=== PATIENT | male | born 1945 | race Caucasian/White ===

== ENCOUNTER → 2018-11-21 09:38 | Outpatient (CLI) | payer MEDICARE, OTHER, SELFPAY ==
[2018-11-21 10:52] LABS: Add Manual Diff / Slide Review NO; Basophils Absolute Auto 100 /uL (0-100); Basophils Percent Auto 1.4 % (0-2); Eosinophils Absolute Auto 300 /uL (0-450); Eosinophils Percent Auto 3.9 % (2-4); Hematocrit 42.9 % (41-53); Hemoglobin 14.6 g/dL (13.5-17.5); Lymphocytes Absolute Auto 1400 /uL (1100-4500); Lymphocytes Percent Auto 21.9 % (25-40); Mean Corpuscular HGB Conc 34.1 % (30-36); Mean Corpuscular Volume 90.8 fL (80-100); Monocytes Absolute Auto 600 /uL (0-900); Neutrophils Absolute Auto 4100 /uL (1500-7000); Neutrophils Percent Auto 63.8 % (50-75); Platelet Count 249 X10^3/uL (150-400); Red Blood Cell Count 4.73 X10^6/uL (4.5-5.9); Red Cell Distribution Width 13.8 % (11.6-14.8); White Blood Cell Count 6.5 X10^3/uL (4.5-11.0)
[2018-11-21 11:34] LABS: Alanine Aminotransferase 39 IU/L (21-72); Albumin 4.5 g/dL (3.5-5.0); Albumin Globulin Ratio 1.5 (1.0-2.8); Alkaline Phosphatase 63 U/L (38-126); Aspartate Aminotransferase 33 IU/L (17-59); Bilirubin Total 0.8 mg/dL (0.2-1.3); Blood Urea Nitrogen 18 mg/dL (9-20); Calcium 9.7 mg/dL (8.4-10.2); Carbon Dioxide 29 mmol/L (22-32); Chloride 101 mmol/L (98-107); Cholesterol 148 mg/dL (140-199); Estimated Glomerular Filt Rate > 60.0 mL/min (>60); Glucose 102 mg/dL (80-110); HDL Cholesterol 43 mg/dL (40-60); HEMOLYSIS < 15 (0-50); LDL Cholesterol Calculated 86 mg/dL (<100); Potassium 4.3 mmol/L (3.4-5.1); Sodium 140 mmol/L (137-145); Total Protein 7.5 g/dL (6.3-8.2); Triglycerides 93 mg/dL (35-150)
[2018-11-21 12:01] LABS: TSH w/ Reflex to FT4 3.01 uIU/mL (0.47-4.68)
== END ==
PROVIDERS: PCP Family Medicine; Visit Provider Family Medicine
DX: E78.2 Mixed hyperlipidemia (principal); I10 Essential (primary) hypertension; Z00.00 Encounter for general adult medical examination without abnormal findings
CPT/HCPCS: 36415; 80053; 80061; 84443; 85025

== ENCOUNTER → 2020-06-13 07:14 | Outpatient (CLI) | payer MEDICARE, OTHER, SELFPAY ==
[2020-06-13 09:06] LABS: Alanine Aminotransferase 54 IU/L (<50); Albumin 4.1 g/dL (3.5-5.0); Albumin Globulin Ratio 1.4 (1.0-2.8); Alkaline Phosphatase 63 U/L (38-126); Aspartate Aminotransferase 44 IU/L (17-59); BUN Creatinine Ratio 20.9 (6-22); Bilirubin Total 0.8 mg/dL (0.2-1.3); Blood Urea Nitrogen 18 mg/dL (9-20); Calcium 9.4 mg/dL (8.4-10.2); Carbon Dioxide 32 mmol/L (22-32); Chloride 102 mmol/L (98-107); Cholesterol 140 mg/dL (140-199); Estimated Glomerular Filt Rate > 60.0 mL/min (>60); Glucose 101 mg/dL (80-110); HDL Cholesterol 48 mg/dL (40-60); HEMOLYSIS < 15 (0-50); LDL Cholesterol Calculated 77 mg/dL (<100); Potassium 4.5 mmol/L (3.4-5.1); Sodium 139 mmol/L (137-145); Total Protein 7.1 g/dL (6.3-8.2); Triglycerides 76 mg/dL (35-150)
== END ==
PROVIDERS: PCP Family Medicine
DX: E78.2 Mixed hyperlipidemia (principal)
CPT/HCPCS: 36415; 80053; 80061

== ENCOUNTER → 2021-06-12 06:57 | Outpatient (CLI) | payer MEDICARE, OTHER, SELFPAY ==
[2021-06-12 08:52] LABS: Alanine Aminotransferase 45 IU/L (<50); Albumin 4.5 g/dL (3.5-5.0); Albumin Globulin Ratio 1.5 (1.0-2.8); Alkaline Phosphatase 69 U/L (38-126); Aspartate Aminotransferase 40 IU/L (17-59); Bilirubin Total 0.6 mg/dL (0.2-1.3); Blood Urea Nitrogen 19 mg/dL (9-20); Calcium 10.1 mg/dL (8.4-10.2); Carbon Dioxide 29 mmol/L (22-32); Chloride 100 mmol/L (98-107); Cholesterol 167 mg/dL (140-199); Estimated Glomerular Filt Rate > 60.0 mL/min (>60); Globulin 3.1 g/dL (1.7-4.1); Glucose 111 mg/dL (80-110); HDL Cholesterol 52 mg/dL (40-60); HEMOLYSIS < 15 (0-50); LDL Cholesterol Calculated 86 mg/dL (<100); Potassium 4.6 mmol/L (3.4-5.1); Sodium 139 mmol/L (137-145); Total Protein 7.6 g/dL (6.3-8.2); Triglycerides 144 mg/dL (35-150)
== END ==
PROVIDERS: PCP Family Medicine; Referring Provider Internal Medicine Cardiovascular Disease; Visit Provider Internal Medicine Cardiovascular Disease
DX: E78.2 Mixed hyperlipidemia (principal)
CPT/HCPCS: 36415; 80053; 80061

== ENCOUNTER 2022-04-21 04:29 | Emergency (ER) | payer MEDICARE, OTHER, SELFPAY ==
[2022-04-21 04:34] VITALS: BP 201/84; PULSE 66; RESP 14; TEMP 36.6; O2SAT 97; BMI 24.4
--- NOTE | 2022-04-21 05:04 | DI.CT.S_ITS ---
PROCEDURE: CT HEAD/BRAIN WO CON INDICATIONS: fall TECHNIQUE: Noncontrast 4.5 mm thick angled axial sections acquired from the foramen magnum to the vertex, with coronal and sagittal reformats. For radiation dose reduction, the following was used: automated exposure control, adjustment of mA and/or kV according to patient size. COMPARISON: [facility], CT, HEAD WITHOUT CONTRAST, 02/13/2010, 13:16. FINDINGS: Image quality: Excellent. CSF spaces: Basal cisterns are patent. No extra-axial fluid collections. The ventricles are symmetric in size and shape. Brain: No intracranial bleeds or masses. There is age-appropriate cerebral volume loss, with resultant ventricular and sulcal prominence. There are periventricular and deep white matter chronic small vessel ischemic changes. There is intracranial internal carotid artery atherosclerosis. Skull and face: Calvarium and visualized facial bones appear intact, without suspicious lesions. Sinuses: Visualized sinuses and mastoids are clear. IMPRESSION: Negative head CT for patient age. No evidence of acute intracranial process. Comment: Final report is concordant with preliminary interpretation provided by [facility]. Dictated by: Jeff Cruz M.D. on 04/21/2022 at 8:13 Approved by: Jeff Curz M.D. on 04/21/2022 at 8:14
--- NOTE | 2022-04-21 05:04 | DI.CT.S_ITS ---
PROCEDURE: CT CERVICAL SPINE WO CON INDICATIONS: fall, neck pain TECHNIQUE: Noncontrast 3 mm thick sections acquired from the skull base to the T4 level. Sagittal and coronal reformats were then constructed. For radiation dose reduction, the following was used: automated exposure control, adjustment of mA and/or kV according to patient size. COMPARISON: None. FINDINGS: Image quality: Excellent. Bones: No fractures or dislocations. Visualized superior ribs are intact. Relatively mild cervical spondylitic change. Soft tissues: Prevertebral soft tissues are normal in thickness. No paravertebral hematomas. No apical pneumothoraces. IMPRESSION: No evidence acute cervical fracture or dislocation. Comment: Final report is concordant with preliminary interpretation provided by [facility]. Dictated by: Jeff Cruz M.D. on 04/21/2022 at 8:11 Approved by: Jeff Cruz M.D. on 04/21/2022 at 8:13
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
== END 2022-04-21 06:44 | disposition home or self-care (01) ==
PROVIDERS: Emergency Provider Emergency Medicine; PCP Family Medicine
DX: S06.0X0A Concussion without loss of consciousness, initial encounter (principal); S16.1XXA Strain of muscle, fascia and tendon at neck level, initial encounter; F43.10 Post-traumatic stress disorder, unspecified; F51.4 Sleep terrors [night terrors]; W06.XXXA Fall from bed, initial encounter
CPT/HCPCS: 70450; 72125; 99283

== ENCOUNTER → 2022-10-02 08:33 | Outpatient (CLI) | payer MEDICARE, OTHER, SELFPAY ==
[2022-10-02 09:30] LABS: Hemoglobin A1C% w Est Avg Glu 6.1 % (4.0-6.0)
[2022-10-02 09:56] LABS: Add Manual Diff / Slide Review NO; Basophils Absolute Auto 100 /uL (0-100); Basophils Percent Auto 1.1 % (0-2); Eosinophils Absolute Auto 200 /uL (0-450); Eosinophils Percent Auto 3.1 % (2-4); Hematocrit 42.8 % (41-53); Hemoglobin 14.7 g/dL (13.5-17.5); Lymphocytes Absolute Auto 1900 /uL (1100-4500); Lymphocytes Percent Auto 23.9 % (25-40); Mean Corpuscular HGB Conc 34.3 % (30-36); Mean Corpuscular Volume 90.4 fL (80-100); Monocytes Absolute Auto 800 /uL (0-900); Monocytes Percent Auto 9.5 % (3-14); Neutrophils Absolute Auto 5000 /uL (1500-7000); Neutrophils Percent Auto 62.4 % (50-75); Platelet Count 232 X10^3/uL (150-400); Red Blood Cell Count 4.74 X10^6/uL (4.5-5.9); Red Cell Distribution Width 13.4 % (11.6-14.8)
[2022-10-02 10:04] LABS: Alanine Aminotransferase 40 IU/L (<50); Albumin 4.2 g/dL (3.5-5.0); Albumin Globulin Ratio 1.4 (1.0-2.8); Alkaline Phosphatase 68 U/L (38-126); Aspartate Aminotransferase 34 IU/L (17-59); Blood Urea Nitrogen 20 mg/dL (9-20); Calcium 9.5 mg/dL (8.4-10.2); Carbon Dioxide 31 mmol/L (22-32); Chloride 100 mmol/L (98-107); Estimated Glomerular Filt Rate > 60 mL/min (>60); Glucose 111 mg/dL (80-110); HEMOLYSIS < 15 (0-50); Potassium 4.8 mmol/L (3.4-5.1); Sodium 139 mmol/L (137-145); Total Protein 7.2 g/dL (6.3-8.2)
[2022-10-02 10:30] LABS: Prostate Specific Antigen 15.6 ng/mL (0.10-4.00)
== END ==
PROVIDERS: PCP Family Medicine; Referring Provider Family Medicine; Visit Provider Family Medicine
DX: E78.5 Hyperlipidemia, unspecified (principal); R73.9 Hyperglycemia, unspecified; I10 Essential (primary) hypertension; Z12.5 Encounter for screening for malignant neoplasm of prostate
CPT/HCPCS: 36415; 80053; 83036; 84153; 85025; G0103

== ENCOUNTER → 2022-12-13 16:24 | Outpatient (CLI) | payer MEDICARE, OTHER, SELFPAY ==
[2022-12-13 18:11] LABS: Prostate Specific Antigen 18.2 ng/mL (0.10-4.00)
== END ==
PROVIDERS: PCP Family Medicine; Referring Provider Family Medicine; Visit Provider Family Medicine
DX: R97.20 Elevated prostate specific antigen [PSA] (principal)
CPT/HCPCS: 36415; 84153

== ENCOUNTER → 2023-01-12 08:15 | Outpatient (CLI) | payer MEDICARE, OTHER, SELFPAY ==
[2023-01-12 11:19] LABS: Prostate Specific Antigen 15.4 ng/mL (0.10-4.00)
== END ==
PROVIDERS: PCP Family Medicine; Referring Provider Urology; Visit Provider Urology
DX: R97.20 Elevated prostate specific antigen [PSA] (principal)
CPT/HCPCS: 36415; 84153

== ENCOUNTER 2025-03-20 11:54 | Emergency (ER) | payer MEDICARE, OTHER, SELFPAY ==
[2025-03-20] VITALS (15 sets, daily range): BP systolic 126–180; BP diastolic 63–81; PULSE 54–72; RESP 11–26; TEMP 36.4; O2SAT 96–100; BMI 25.0
--- NOTE | 2025-03-20 12:03 | DI.RAD.S_ITS ---
PROCEDURE: XR CHEST 1V INDICATIONS: Chest Pain TECHNIQUE: One view of the chest was acquired. COMPARISON: None. FINDINGS: Surgical changes and devices: None. Lungs and pleura: An incomplete inspiratory result is noted, causing a crowded appearance to the lung markings. No focal infiltrates are seen. No pneumothorax or significant pleural effusions are seen. Mediastinum: Mediastinal contours appear normal. Heart size is normal. Bones and chest wall: No suspicious bony lesions. Age-appropriate bony degenerative changes are seen. Overlying soft tissues appear unremarkable. IMPRESSION: Low lung volumes, without an acute abnormality seen by plain film. Dictated by: Ochoa Kapadia M.D. on 03/20/2025 at 11:22 Approved by: Ochoa Kapadia M.D. on 03/20/2025 at 11:22
--- NOTE | 2025-03-20 12:05 | EKG_ITS ---
[address] [address] Test Date: 2025-03-20 Pat Name: Juan Francisco Serra Department: Room: Gender: Male [employer] W[employer] Inspector: THAI : 1945 Requested By: Order Number: [id number] Reading MD: Ricardo Gurrola Measurements Intervals [place] Rate: 66 P: 37 MT: 150 QRS: 46 QRSD: 80 T: 61 QT: 420 QTc: 440 Interpretive Statements Normal sinus rhythm Electronically Signed On 03-20-2025 15:10:36 PDT by Ricardo Gurrola
--- NOTE | 2025-03-20 12:10 | ED.DIZZY ---
HPI - Dizziness General Chief Complaint: Dizziness Stated Complaint: Vertigo, SOB , leg pain Time Seen by Provider: 03/20/25 12:10 Source: patient Mode of arrival: Ambulatory History of Present Illness HPI Narrative: 80-year-old male complaining of dizziness generalized weakness and exertional dyspnea. These symptoms have been ongoing for quite some time, says that they were worse yesterday when he was out in the sun. Actually fell down yesterday at 1 point although did not syncopized. He is not having chest pain or shortness of breath. He has not have focal numbness or weakness. Dizziness today is better than it was yesterday. Has a history of prostate cancer and hypertension. There is a family practice note that I reviewed from March of 2024 where he was seen for chronic dizziness and shortness of breath. Related Data Home Medications ?Medication ?Instructions ?Recorded ?Confirmed amlodipine 5 mg tablet 5 mg PO DAILY 09/30/22 04/24/24 atorvastatin 40 mg tablet 40 mg PO DAILY 09/30/22 04/24/24 metoprolol succinate 25 mg 25 mg PO DAILY 09/30/22 04/24/24 tablet,extended release 24 hr Previous Rx's ?Medication ?Instructions ?Recorded gentamicin 0.3 % eye drops 2 drp EYE-LEFT TID #5 mL 01/24/25 Allergies Allergy/AdvReac Type Severity Reaction Status Date / Time GRASS Allergy Intermediate ITCHY Uncoded 03/20/25 12:04 WATERY EYES AND SNEEZING INGREDIENT: NKDA - NO KNOWN Allergy Unknown Uncoded 03/20/25 12:04 DRUG ALLERGIES Patient History Medical History Conjunctivitis Prostate cancer Elevated PSA Hyperglycemia Hyperlipidemia Hypertension Adult night terror Social History Smoking Status: Unknown if ever smoked Smoking Status: Unknown if ever smoked alcohol intake frequency: 0-2 drinks per day Exam Initial Vital Signs Initial Vital Signs: Vital Signs Temperature 97.6 F 03/20/25 11:55 Pulse Rate 72 03/20/25 11:55 Respiratory Rate 17 03/20/25 11:55 Blood Pressure 180/78 H 03/20/25 11:55 Pulse Oximetry 96 03/20/25 11:55 Oxygen Delivery Method Room Air 03/20/25 11:55 vital signs are reviewed Const General: cooperative and No acute distress HENMT Head: normocephalic and atraumatic Face and sinus: face symmetric Mouth: moist mucous membranes HENMT Other: Cerumen impaction left ear Eyes Pupils: PERRL EOM: EOM intact bilaterally Other: No nystagmus Neck Neck: normal visual inspection, supple and No JVD Chest Chest: normal inspection of the chest Resp Effort & Inspection: normal respiratory effort and able to speak in complete sentences Auscultation: clear to auscultation bilaterally Cardio Rate: regular rate Rhythm: regular rhythm Heart Sounds: no murmurs Other: Normal heart rate GI Inspection: normal to inspection Palpation: soft Auscultation: normal bowel sounds Back/Spine/Pelvis Back: normal to inspection Skin General: no rashes or lesions noted and warm Neuro General: patient alert, patient oriented x3 and moves all extremities Speech: speech normal Extrem General: full ROM Psych Appearance: grossly normal Course Orders Ordered: ED Orders 03/20/25 12:03 XR chest 1V Stat EKG-12 Lead Stat 03/20/25 12:20 Complete Blood Count AUTO DIFF Stat Comprehensive Metabolic Panel Stat Lipase Stat Magnesium Stat NT-proBNP (BNP-Adult 18+) Stat PTT Partial Thromboplastin Lew Stat Prothrombin Time INR Stat Troponin & CK Cardiac Panel Stat 03/20/25 13:27 CT head/brain wo con Stat Carbamide Peroxide (Carbamide Peroxide Otic 15 Ml) 4 drops EAR-LEFT BID GARRISON Last Admin: 03/20/25 15:43 Dose: 4 drops Documented By: ES Vital Signs Vital signs: Vital Signs - 8 hr 03/20/25 11:55 03/20/25 12:00 03/20/25 12:00 Temperature 97.6 F Pulse Rate 72 71 Respiratory Rate 17 Blood Pressure 180/78 H 180/78 H Pulse Oximetry 96 96 Oxygen Delivery Method Room Air 03/20/25 12:30 03/20/25 12:31 03/20/25 12:31 Temperature Pulse Rate 61 62 Respiratory Rate 19 18 Blood Pressure 136/63 Pulse Oximetry 99 97 Oxygen Delivery Method 03/20/25 13:00 03/20/25 13:00 03/20/25 13:30 Temperature Pulse Rate 65 65 Respiratory Rate 21 21 Blood Pressure 126/63 Pulse Oximetry 99 98 Oxygen Delivery Method 03/20/25 13:37 03/20/25 13:37 03/20/25 14:00 Temperature Pulse Rate 68 57 L Respiratory Rate 20 11 L Blood Pressure 178/80 H Pulse Oximetry 99 98 Oxygen Delivery Method 03/20/25 14:01 03/20/25 14:01 03/20/25 14:30 Temperature Pulse Rate 56 L 55 L Respiratory Rate 15 16 Blood Pressure 151/69 H Pulse Oximetry 97 98 Oxygen Delivery Method 03/20/25 14:30 03/20/25 15:00 03/20/25 15:00 Temperature Pulse Rate 64 Respiratory Rate 26 H Blood Pressure 151/70 H 149/65 H Pulse Oximetry 100 Oxygen Delivery Method 03/20/25 15:30 03/20/25 15:30 03/20/25 16:00 Temperature Pulse Rate 54 L 57 L Respiratory Rate 11 L 20 Blood Pressure 140/63 Pulse Oximetry 98 99 Oxygen Delivery Method 03/20/25 16:01 03/20/25 16:01 Temperature Pulse Rate 57 L Respiratory Rate 17 Blood Pressure 161/70 H Pulse Oximetry 99 Oxygen Delivery Method MDM - Dizziness Lab Data Lab results narrative: Labs are reassuring, BNP is normal, CMP is unremarkable CBC with diff unremarkable, normal troponin 03/20/25 12:20 03/20/25 12:20 Labs: Lab Results 03/20/25 Range/Units 12:20 WBC 8.8 (4.5-11.0) X10^3/uL RBC 4.21 L (4.5-5.9) X10^6/uL Hgb 13.3 L (13.5-17.5) g/dL Hct 38.6 L (41-53) % MCV 91.7 (80-100) fL MCH 31.5 (26-34) PG MCHC 34.4 (30-36) % RDW 14.0 (11.6-14.8) % Plt Count 244 (150-400) X10^3/uL Neut % (Auto) 66.4 (50-75) % Lymph % (Auto) 18.7 L (25-40) % [place] % (Auto) 11.0 (3-14) % Eos % (Auto) 2.9 (2-4) % Baso % (Auto) 1.0 (0-2) % Neut # (Auto) 5900 (8351-2716) /uL Lymph # (Auto) 1600 (6277-0108) /uL [place] # (Auto) 1000 H (0-900) /uL Eos # (Auto) 300 (0-450) /uL Baso # (Auto) 100 (0-100) /uL PT 11.6 (9.4-12.5) SECONDS INR 1.0 (0.9-1.3) APTT 31 (25.1-36.5) SECONDS Sodium 136 L (137-145) mmol/L Potassium 4.1 (3.4-5.1) mmol/L Chloride 102 (98-107) mmol/L Carbon Dioxide 21 L (22-32) mmol/L BUN 25 H (9-20) mg/dL Creatinine 1.02 (0.66-1.25) mg/dL Estimated GFR > 60 (>60) mL/min BUN/Creatinine Ratio 24.5 H (6-22) Glucose 89 (70-99) mg/dL Calcium 9.7 (8.4-10.2) mg/dL Magnesium 2.0 (1.6-2.3) mg/dL Total Bilirubin 0.7 (0.2-1.3) mg/dL AST 33 (17-59) IU/L ALT 28 (<50) IU/L Alkaline Phosphatase 69 (38-126) U/L Total Creatine Kinase 66 (55-170) U/L Troponin I < 0.012 (0.01-0.034) ng/mL NT-Pro-B Natriuret Pep 281 (<450) pg/mL Total Protein 8.2 (6.3-8.2) g/dL Albumin 4.8 (3.5-5.0) g/dL Globulin 3.4 (1.7-4.1) g/dL Albumin/Globulin Ratio 1.4 (1.0-2.8) Lipase 68 (23-300) U/L Imaging Data CT scan - head: My Impression: Independently reviewed CT head, no acute findings Radiologist's Impression: Reviewed radiology report, no acute abnormality described Chest x-ray: My Impression: Independently reviewed chest x-ray, no acute findings ECG Data Attestation: I personally reviewed and interpreted this ECG as follows: (ECG shows sinus rhythm at [address] segment changes normal intervals no previous infarction [time] EKG is normal sinus rhythm rate [ ] and free of any signs of ischemia or ectopy. No ST segmental elevation or depression. No T wave inversions) MDM Narrative Medical decision making narrative: 80-year-old man concerned about dizziness and exertional shortness of breath. He reports that this has been present for a long time and indeed I can see records where he was seen for this a year ago. Has had a negative stress echo as part of this, he is not having chest pain I considered but do not suspect ischemia, does not have evidence for acute stroke and presentation did not suggest large vessel occlusion. He did have a cerumen impaction in his left ear this was irrigated out seemed to help his dizziness. Discharge Plan Departure Patient Disposition: Home Clinical Impression: Dizziness, Exertional shortness of breath Cerumen impaction Qualifiers: Laterality: left Qualified Code(s): H61.22 - Impacted cerumen, left ear Activity Restrictions/Additional Instructions: Emergency department workup today is reassuring. Your dizziness may have been made worse by the impacted wax in your left ear which we irrigated out. You could also use Debrox solution which is available [id number] to help clear out that ear although at present it looks okay. Do not put Q-tips etc. in your ear. With respect to your shortness of breath, everything that I am checking today looks all right. I think it is safe to follow up with the regular doctor regarding this and your dizziness. Continue previous home medications. If you develop chest pain short increasing shortness of breath or other acute symptoms recheck in the emergency department Prescriptions: No Action metoprolol succinate 25 mg tablet extended release 24 hr 25 mg PO DAILY Patient Comments: take 1 tablet by mouth once daily amlodipine 5 mg tablet 5 mg PO DAILY Patient Comments: take 1 tablet by mouth once daily atorvastatin 40 mg tablet 40 mg PO DAILY gentamicin 0.3 % drops 2 drp EYE-LEFT TID Qty: 5 0RF Referrals: Francesco Sanchez DO [Primary Care Provider, Family Practice] Stand Alone Forms: Patient Portal/API
[2025-03-20 12:38] LABS: Add Manual Diff / Slide Review NO; Hematocrit 38.6 % (41-53); Hemoglobin 13.3 g/dL (13.5-17.5); Lymphocytes Absolute Auto 1600 /uL (1100-4500); Mean Corpuscular HGB Conc 34.4 % (30-36); Mean Corpuscular Hemoglobin 31.5 PG (26-34); Mean Corpuscular Volume 91.7 fL (80-100); Platelet Count 244 X10^3/uL (150-400)
[2025-03-20 12:45] LABS: INR 1.0 (0.9-1.3); Prothrombin Time 11.6 SECONDS (9.4-12.5)
[2025-03-20 12:48] LABS: PTT Partial Thromboplastin Tim 31 SECONDS (25.1-36.5)
[2025-03-20 12:52] LABS: Alanine Aminotransferase 28 IU/L (<50); Albumin 4.8 g/dL (3.5-5.0); Albumin Globulin Ratio 1.4 (1.0-2.8); Alkaline Phosphatase 69 U/L (38-126); Blood Urea Nitrogen 25 mg/dL (9-20); Calcium 9.7 mg/dL (8.4-10.2); Carbon Dioxide 21 mmol/L (22-32); Chloride 102 mmol/L (98-107); Creatine Kinase 66 U/L (55-170); Estimated Glomerular Filt Rate > 60 mL/min (>60); Globulin 3.4 g/dL (1.7-4.1); Glucose 89 mg/dL (70-99); HEMOLYSIS < 15 (0-50); Lipase 68 U/L (23-300); Magnesium 2.0 mg/dL (1.6-2.3); Potassium 4.1 mmol/L (3.4-5.1); Sodium 136 mmol/L (137-145); Total Protein 8.2 g/dL (6.3-8.2)
[2025-03-20 13:04] LABS: NT-proBNP (BNP-Adult 18+) 281 pg/mL (<450); Troponin I < 0.012 ng/mL (0.01-0.034)
--- NOTE | 2025-03-20 13:27 | DI.CT.S_ITS ---
PROCEDURE: CT HEAD/BRAIN WO CON INDICATIONS: dizziness TECHNIQUE: Noncontrast 4.5 mm thick angled axial sections acquired from the foramen magnum to the vertex, with coronal and sagittal reformats. For radiation dose reduction, the following was used: automated exposure control, adjustment of mA and/or kV according to patient size. COMPARISON: [facility], CT, CT HEAD/BRAIN WO CON, 04/21/2022, 5:31. FINDINGS: Image quality: Diagnostic. CSF spaces: Basal cisterns are patent. No extra-axial fluid collections. The ventricles are symmetric in size and shape. Brain: No intracranial bleeds or mass effect. There is cerebral volume loss, with resultant ventricular and sulcal prominence. There are periventricular and deep white matter chronic small vessel ischemic changes. There is intracranial internal carotid artery atherosclerosis. Skull and face: Calvarium and visualized facial bones appear intact, without suspicious lesions. Sinuses: Visualized sinuses and mastoids are clear. IMPRESSION: 1. No acute intracranial process. 2. Moderate atrophy and chronic microvascular ischemic changes. Dictated by: Elaine French M.D. on 03/20/2025 at 13:59 Approved by: Elaine French M.D. on 03/20/2025 at 14:14
[2025-03-20] MEDS: CARBAMIDE PEROXIDE OTIC 15 ML 4 DROPS EAR-LEFT (15:43)
--- NOTE | 2025-03-20 16:36 | PC.NURSE ---
Irrigated pts left ear after drops applied. Significant amount of wax removed, pt denies pain and endorses being able to hear better.
== END 2025-03-20 16:50 | disposition home or self-care (01) ==
PROVIDERS: Emergency Provider Emergency Medicine; PCP Family Medicine
DX: H61.22 Impacted cerumen, left ear (principal); R42 Dizziness and giddiness; R06.02 Shortness of breath
CPT/HCPCS: 36415; 70450; 71045; 80053; 82550; 83690; 83735; 83880; 84484; 85025; 85610; 85730; 93005; 99283; 99284